=== PATIENT | female | born 2000 | race Caucasian/White ===

== ENCOUNTER 2019-12-15 14:46 | Outpatient (CLI) | payer BC | END 2019-12-15 14:47 | disposition home or self-care (01) | LOC: DTY/OP 14:46 | PROVIDERS: ATTEND Surgery | DX: E66.01 Morbid (severe) obesity due to excess calories (principal) | CPT/HCPCS: 97802 ==

== ENCOUNTER 2020-02-16 15:14 | Outpatient (CLI) | payer BC | END 2020-02-16 15:15 | disposition home or self-care (01) | LOC: DTY/OP 15:14 | PROVIDERS: ATTEND Surgery | DX: E66.01 Morbid (severe) obesity due to excess calories (principal) | CPT/HCPCS: 97802 ==

== ENCOUNTER 2020-03-22 15:03 | Outpatient (CLI) | payer BC | END 2020-03-22 15:04 | disposition home or self-care (01) | LOC: DTY/OP 15:03 | PROVIDERS: ATTEND Surgery | DX: E66.01 Morbid (severe) obesity due to excess calories (principal) | CPT/HCPCS: 97802 ==

== ENCOUNTER 2020-04-21 14:08 | Outpatient (CLI) | payer BC | END 2020-04-21 14:09 | disposition home or self-care (01) | LOC: DTY/OP 14:08 | PROVIDERS: ATTEND Surgery | DX: E66.01 Morbid (severe) obesity due to excess calories (principal) | CPT/HCPCS: 97802 ==

== ENCOUNTER 2020-05-05 06:20 | Outpatient (CLI) | payer BC ==
--- NOTE | 2020-05-05 08:24 | RAD ---
2 views chest: 05/05/2020 COMPARISON: None HISTORY: Preoperative patient FINDINGS: There is no pneumothorax, pleural fluid, focal consolidation, or alveolar edema. IMPRESSION: No acute findings.
[2020-05-05 09:28] LABS: #Eosinphils 0.1 10x3/uL (0.0-0.5); #Monocytes 0.5 10x3/uL (0.0-1.1); %Basophils 0.5 % (0.0-2.0); %Eosinophils 1.6 % (0.0-6.0); %Lymphocytes 44.6 % (18.0-47.0); %Monocytes 6.2 % (0.0-10.0); %Neutrophils 46.9 % (40.0-75.0); Hemoglobin 13.4 g/dL (12.0-16.0); Mean Corpuscular HGB CONC 32.4 G/DL (32.0-36.0); Mean Corpuscular Volume 86.4 fl (80.0-100.0); Mean Platelet Volume 11.5 fl (7.4-10.4); Platelet Count 320 10x3/uL (130-400); RBC Distribution Width 12.4 % (11.5-14.5); Red Blood Cell (RBC) Count 4.78 10x6/uL (3.90-5.20); White Blood Cell (WBC) Count 8.6 10x3/uL (4.5-11.0)
[2020-05-05 09:52] LABS: BHCG - Serum Negative (NEGATIVE); Pregs Control Background? CLEAR/WHITE (CLR/WHITE); Pregs Control Bar Appear? YES (CONTROL BAR)
[2020-05-05 10:12] LABS: ALT (SGPT) 25 U/L (8-55); AST (SGOT) 18 U/L (5-34); Albumin 4.5 g/dL (3.5-5.0); Alkaline Phosphatase 91 U/L (40-110); Anion Gap 15 mmol/L (10-20); BUN (Urea Nitrogen) 17 mg/dL (7.0-18.7); Bilirubin, Total 0.5 mg/dL (0.2-1.2); Calc. Creatinine Clearance 0 mL/min (70-130); Calcium 9.4 mg/dL (7.8-10.44); Carbon Dioxide 24 mmol/L (22-29); Chloride 103 mmol/L (98-107); Globulin 2.4 g/dL (2.4-3.5); Glucose 72 mg/dL (70-105); Potassium 4.1 mmol/L (3.5-5.1); Protein, Total 6.9 g/dL (6.0-8.3); Sodium 138 mmol/L (136-145)
[2020-05-05 12:03] LABS: Hemoglobin A1c 5.2 % (4.0-6.0)
[2020-05-05 19:31] LABS: SARS-CoV-2 MS2 Positive; SARS-CoV-2 N Gene Negative; SARS-CoV-2 S Gene Negative; SARS-CoV-2 by NAA Not Detected (NotDetected); SARS-CoV-2 orf1ab Negative
== END 2020-05-05 06:21 | disposition home or self-care (01) ==
LOC: LABBT 06:20
PROVIDERS: ATTEND Surgery
DX: Z01.818 Encounter for other preprocedural examination (principal); Z01.812 Encounter for preprocedural laboratory examination; Z20.828 Contact with and (suspected) exposure to other viral communicable diseases; E66.01 Morbid (severe) obesity due to excess calories
CPT/HCPCS: 71046; 80053; 83036; 84703; 85025; 87635; 93005; 93010; U0003

== ENCOUNTER 2020-05-05 07:15 | Inpatient (IN) | payer BC ==
[2020-05-06 12:30] VITALS: BMI 39.5
[2020-05-07] MEDS ORDERED: PROPOFOL 200 MG/20 ML VIAL ONE (10:14)
[2020-05-07] MEDS ORDERED: Ketorolac Tromethamine 30 MG/ML VIAL ONE (10:14)
[2020-05-07] MEDS ORDERED: Ondansetron PF 4 MG/2 ML Vial ONE (10:14)
[2020-05-07] MEDS ORDERED: Rocuronium Bromide 10 MG/ML (10ML VIAL) ONE (10:14)
[2020-05-07] MEDS ORDERED: Dexamethasone 20 MG/5 ML VIAL ONE (10:14)
[2020-05-07] MEDS ORDERED: Lidocaine 1% PF 5 ML VIAL ONE (10:14)
[2020-05-07] MEDS ORDERED: Glycopyrrolate 0.2 MG/ML 5 ML SYRINGE ONE (10:14)
[2020-05-07] MEDS ORDERED: Heparin 5,000 UNITS/ML VIAL ONE (11:02)
[2020-05-07] MEDS ORDERED: SUGAMMADEX SODIUM 200 MG/2 ML VIAL ONE (12:40)
[2020-05-07] MEDS ORDERED: Fentanyl 250 MCG/5 ML VIAL ONE (12:40)
[2020-05-07] MEDS ORDERED: Midazolam HCl 2 mg/2 ml Vial ONE (12:42)
[2020-05-07] MEDS ORDERED: Lidocaine 1% w/Epinephrine 1:100K 20 ML VIAL ONE (12:51)
[2020-05-07] MEDS ORDERED: Bupivacaine 0.25% HCL 30 ML VIAL ONE (12:51)
[2020-05-07] MEDS ORDERED: Promethazine HCl 25 MG/ML VIAL IM PRN ×3 (14:32→14:54)
[2020-05-07] MEDS ORDERED: Ondansetron HCl/PF 4 MG/2 ML Vial IVP PRN (14:32)
[2020-05-07] MEDS ORDERED: Promethazine HCl 25 MG/ML VIAL SLOW IVP PRN (14:32)
[2020-05-07] MEDS ORDERED: Meperidine HCl/PF 25 MG/ML VIAL SLOW IVP PRN (14:32)
[2020-05-07] MEDS ORDERED: Dextrose 5% in Water 1,000 ML IV PRN (14:33)
[2020-05-07] MEDS ORDERED: diphenhydrAMINE 50 MG/ML VIAL IVP PRN ×2 (14:33→14:54)
[2020-05-07] MEDS ORDERED: Ondansetron PF 4 MG/2 ML Vial IVP PRN (14:33)
[2020-05-07] MEDS ORDERED: hydrALAZINE 20 MG/ML VIAL SLOW IVP PRN (14:33)
[2020-05-07] MEDS ORDERED: Dextrose 50% Abboject 50 ML SYRINGE SLOW IVP PRN (14:33)
[2020-05-07] MEDS ORDERED: Hydrocodone-Acetamin 15 ML UDCUP PO PRN (14:33)
[2020-05-07] MEDS ORDERED: Fentanyl 100 MCG/2 ML VIAL ONE ×2 (14:38→15:02)
[2020-05-07] MEDS ORDERED: Zolpidem Tartrate 5 MG TAB PO PRN (14:54)
[2020-05-07] MEDS ORDERED: fentaNYL Citrate/PF 2,000 MCG in Sodium Chloride 0.9% 60 ML IV PRN (14:54)
[2020-05-07] MEDS ORDERED: diphenhydrAMINE 50 MG/ML VIAL IM PRN (14:54)
[2020-05-07] MEDS ORDERED: Naloxone HCl 0.4 mg/ml Vial IV PRN (14:54)
[2020-05-07] MEDS ORDERED: diphenhydrAMINE 25 MG CAP PO PRN (14:54)
[2020-05-07] MEDS ORDERED: Communication Order-Pharmacy FS SCH (15:00)
--- NOTE | 2020-05-07 18:26 | OP ---
DATE OF PROCEDURE: 05/07/2020 PREOPERATIVE DIAGNOSIS: Morbid obesity with a body mass index of 40. POSTOPERATIVE DIAGNOSIS: Morbid obesity with a body mass index of 40. PROCEDURE PERFORMED: Laparoscopic sleeve gastrectomy with Ethicon staple line reinforcements and 38-Italian bougie. ANESTHESIA: General. ESTIMATED BLOOD LOSS: 50 mL. COMPLICATIONS: None. FINDINGS: Normal postoperative EGD. DESCRIPTION OF PROCEDURE: The patient was taken to the operating room and laid supine on the operating room table. After general anesthetic was obtained, the arms and legs were double strapped to bariatric table. The abdomen was prepped and draped in a sterile fashion. Left subcostal 5-mm Optiview trocar was placed in usual fashion. High-flow pneumoperitoneum was obtained. A right and left abdominal 12 mm ports as well as a right subcostal 5-mm port were all placed under direct visualization. A 5-mm incision was made at the xiphoid, and the Ayan was brought in and then used to raise the liver off the GE junction. Short gastrics were taken down from a distance of 6 cm proximal to the pylorus angled up towards the incisura. The left johnny, posterior fundus, and angle of His were completely dissected. There was no hiatal hernia. Short gastrics were taken down to a distance of 6 cm proximal to the pylorus. OG tube was removed, and a 38 bougie was brought in and its tip left in the antrum of the stomach. Multiple loads of an [place] staple device were used to perform the sleeve. The first was fired up at the distance of 6 cm proximal to the pylorus, angled up towards the incisura. Care was taken to avoid being too close to the incisura. Multiple loads were then fired up along the bougie. Stomach was completely transected at the angle of His. Stomach was removed from the left abdominal incision. This fascial defect was closed using GraNee needle and Vicryl tie. There was no bleeding on the staple line. The bougie was removed, and an EGD scope was passed through the esophagus, stomach to the level of duodenum without obstruction. There was no stricture at the incisura. No involvement of the GE junction with the staple line. EGD scope was used to decompress the stomach, it was pulled and removed. All port sites were infiltrated using local anesthetic. Ayan retractors were removed under direct visualization as are all ports. Vicryl in a GraNee needle had been used to close the fascial defect from the left abdominal incision. All ports were removed under camera visualization without bleeding. Pneumoperitoneum was let down. 4-0 Monocryl and Dermabond to close all skin incisions. The patient was sent to Recovery in stable condition. All instrument counts, needle counts, and lap counts were correct. Job ID: [id number]
[2020-05-07] MEDS: D5 1/2 NS w/20 mEq KCL 1,000 ML IV SCH ×2 (20:26→23:30)
[2020-05-07] MEDS: Ondansetron PF 4 MG/2 ML Vial IVP PRN (20:31)
[2020-05-07] MEDS ORDERED: Enoxaparin Sodium 40 MG/0.4 ML SYRINGE SC SCH (21:00)
[2020-05-08] MEDS: Ondansetron PF 4 MG/2 ML Vial IVP PRN ×2 (05:20→11:23)
[2020-05-08] MEDS: D5 1/2 NS w/20 mEq KCL 1,000 ML IV SCH (05:20)
[2020-05-08 05:25] LABS: #Lymphocytes 1.8 thou/uL (1.20-3.40); #Monocytes 0.9 thou/uL (0.11-0.59); #Neutrophils 7.8 thou/uL (1.40-6.50); %Basophils 0.1 % (0.0-1.0); %Eosinophils 0.1 % (0.0-10.0); %Lymphocytes 17.2 % (21.0-51.0); %Monocytes 8.9 % (0.0-10.0); %Neutrophils 73.8 % (42.0-75.0); Hemoglobin 12.8 g/dL (12.0-16.0); Mean Corpuscular Hemoglobin 28.2 pg (27.0-31.0); Mean Platelet Volume 8.6 fL (7.4-10.4); Platelet Count 270 thou/uL (130-400); RBC Distribution Width 11.6 % (11.5-14.5); Red Blood Cell (RBC) Count 4.52 mill/uL (4.20-5.40); White Blood Cell (WBC) Count 10.6 thou/uL (4.8-10.8)
[2020-05-08 05:54] LABS: Anion Gap 13 mmol/L (10-20); BUN (Urea Nitrogen) 6 mg/dL (7.0-18.7); Calc. Creatinine Clearance 221 mL/min (70-130); Calcium 8.5 mg/dL (7.8-10.44); Carbon Dioxide 23 mmol/L (22-29); Chloride 104 mmol/L (98-107); Glucose 108 mg/dL (70-105); Potassium 4.4 mmol/L (3.5-5.1); Sodium 136 mmol/L (136-145)
--- NOTE | 2020-05-08 08:24 | DIS ---
DATE OF ADMISSION: 05/07/2020 DATE OF DISCHARGE: 05/08/2020 ADMITTING DIAGNOSIS: Morbid obesity. DISCHARGE DIAGNOSIS: Morbid obesity. PROCEDURE: Laparoscopic sleeve by Dr. Green without complication. CONDITION ON DISCHARGE: Improved. STAFF: Yariel Green MD HOSPITAL COURSE: On postop day 1, the patient is tolerating liquids. She is doing well. She is discharged home. She will follow up in 2 weeks. Job ID: [id number]
[2020-05-08] MEDS ORDERED: Pantoprazole 40 MG VIAL IVP SCH (09:00)
[2020-05-08] MEDS ORDERED: Hydrocodone-Acetamin 15 ML UDCUP PO PRN (09:22)
[2020-05-08 11:26] VITALS: BP 117/62; TEMP 98.1
[2020-05-08] MEDS ORDERED: FLU VACC QS2020-21(6MOS UP)/PF 60 MCG/0.5 ML SYRINGE IM ONE (21:00)
== END 2020-05-08 12:44 | disposition home or self-care (01) | DRG 621 ==
LOC: SURG A 05-07 10:41 → SJJU 05-07 19:08
PROVIDERS: ADMIT Surgery; ATTEND Surgery
PROC: 0DB64Z3 Excision of Stomach, Percutaneous Endoscopic Approach, Vertical (ICD-10-PCS; principal; 2020-05-07)
PROC: 0DJ08ZZ Inspection of Upper Intestinal Tract, Via Natural or Artificial Opening Endoscopic (ICD-10-PCS; 2020-05-07)
DX: E66.01 Morbid (severe) obesity due to excess calories (principal); Z79.899 Other long term (current) drug therapy; Z68.41 Body mass index [BMI] 40.0-44.9, adult; Z23 Encounter for immunization; Z20.828 Contact with and (suspected) exposure to other viral communicable diseases
CPT/HCPCS: 36415; 71046; 80048; 80053; 83036; 84703; 85025; 87635; 88307; 88312; 93005; C9113; J0690; J1100; J1644; J1650; J1885; J2250; J2405; J2704; J3010; J3480; S0020; U0003

== ENCOUNTER 2020-05-12 00:10 | Emergency (ER) | payer BC ==
[2020-05-12 01:05] LABS: #Basophils 0.1 thou/uL (0.0-0.2); #Eosinphils 0.2 thou/uL (0.0-0.7); #Lymphocytes 2.9 thou/uL (1.20-3.40); #Monocytes 0.6 thou/uL (0.11-0.59); #Neutrophils 6.1 thou/uL (1.40-6.50); %Basophils 0.5 % (0.0-1.0); %Eosinophils 1.6 % (0.0-10.0); %Lymphocytes 29.5 % (21.0-51.0); %Monocytes 6.5 % (0.0-10.0); %Neutrophils 61.9 % (42.0-75.0); Hemoglobin 13.2 g/dL (12.0-16.0); Mean Corpuscular HGB CONC 33.7 g/dL (32.0-36.0); Mean Corpuscular Volume 86.1 fL (78.0-98.0); Mean Platelet Volume 8.5 fL (7.4-10.4); Platelet Count 278 thou/uL (130-400); RBC Distribution Width 11.6 % (11.5-14.5); Red Blood Cell (RBC) Count 4.54 mill/uL (4.20-5.40); White Blood Cell (WBC) Count 9.8 thou/uL (4.8-10.8)
[2020-05-12 01:22] LABS: BHCG - Serum Negative (NEGATIVE); Pregs Control Background? CLEAR/WHITE (CLR/WHITE); Pregs Control Bar Appear? YES (CONTROL BAR)
[2020-05-12 01:27] LABS: ALT (SGPT) 20 U/L (8-55); AST (SGOT) 16 U/L (5-34); Albumin 4.2 g/dL (3.5-5.0); Alkaline Phosphatase 89 U/L (40-110); Anion Gap 18 mmol/L (10-20); BUN (Urea Nitrogen) 13 mg/dL (7.0-18.7); Bilirubin, Total 0.7 mg/dL (0.2-1.2); Calc. Creatinine Clearance 0 mL/min (70-130); Calcium 9.1 mg/dL (7.8-10.44); Carbon Dioxide 20 mmol/L (22-29); Chloride 101 mmol/L (98-107); Globulin 3.2 g/dL (2.4-3.5); Glucose 75 mg/dL (70-105); Potassium 3.7 mmol/L (3.5-5.1); Protein, Total 7.4 g/dL (6.0-8.3); Sodium 135 mmol/L (136-145)
--- NOTE | 2020-05-12 08:11 | CT ---
PRELIMINARY REPORT/[facility]/EMERGENCY AFTER HOURS PROCEDURE: EXAM: CTA Chest with Intravenous Contrast CLINICAL HISTORY: HAD SX SUNDAY FOR THE GASTRIC SLEEVE. HAS BEEN HAVING SOB WHEN AMBULATING. DR. SPARKS WAS THE SURGEO N AND TOLD HER TO COME IN TO BE EVALUATED FOR A PE. TECHNIQUE: Axial CTA images of the chest with intravenous contrast. Three-dimensional MIP/volume rendered reform ations were performed. CONTRAST: With; 90ML ISOVUE 370 COMPARISON: None provided. FINDINGS: PULMONARY ARTERIES There is no intraluminal filling defect suspicious for PE. AORTA No thoracic aortic aneurysm or dissection. LUNGS Lungs are clear bilaterally. No evidence of acute pneumonia. PLEURAL SPACES No pleural effusion. No pneumothorax. HEART AND MEDIASTINUM No cardiomegaly. No significant pericardial effusion. LYMPH NODES No lymphadenopathy. BONES No focal osseous abnormality or acute fracture. CHEST WALL AND UPPER ABDOMEN Evidence of recent sleeve gastrectomy with mild stranding in the perigastric fat, an expected recent postoperative finding. No CT evidence of acute complication. IMPRESSION: Unremarkable CTA of the chest. ELECTRONICALLY SIGNED BY: Imer Mann M.D. May 12, 2020 2:26:35 AM [facility] This report is intended for review by the ordering physician only, in accordance of law. If you recei ve this report in error, please call [facility] at [phone]. FINAL REPORT CTA CHEST: Axial tomograms were obtained with multiplanar reconstruction and 3D post processing. HISTORY: Postop with shortness of breath. Assess for pulmonary embolus. FINDINGS: No evidence of pulmonary embolus. Lung griffin appear clear. No mediastinal adenopathy. I am in agreement with the preliminary report. POS: REI
[2020-05-12] MEDS ORDERED: Iopamidol 370 76% 100 ML VIAL ONE (09:07)
--- NOTE | 2020-05-15 13:29 | EKG ---
Test Reason : Blood Pressure : / mmHG Vent. Rate : 064 BPM Atrial Rate : 064 BPM P-R Int : 144 ms QRS Dur : 082 ms QT Int : 392 ms P-R-T Axes : 046 042 025 degrees QTc Int : 404 ms Normal sinus rhythm Normal ECG Confirmed by DAMON JENKINS M.D. ([id number]), video editor GERMAN SAUNDERS ([id number]) on 05/15/2020 1:29:38 PM Referred By: Confirmed By:DAMON JENKINS M.D.
== END 2020-05-12 02:45 | disposition home or self-care (01) ==
LOC: ERS 00:10
DX: R06.00 Dyspnea, unspecified (principal)
CPT/HCPCS: 71275; 80053; 84703; 85025; 93005; Q9967

== ENCOUNTER 2020-11-03 14:07 | Emergency (ER) | payer BC ==
[2020-11-03] MEDS ORDERED: Ondansetron PF 4 MG/2 ML Vial ONE (14:47)
[2020-11-03 14:50] LABS: #Eosinphils 0.1 thou/uL (0.0-0.7); #Lymphocytes 1.7 thou/uL (1.20-3.40); #Monocytes 0.7 thou/uL (0.11-0.59); #Neutrophils 7.8 thou/uL (1.40-6.50); %Basophils 0.1 % (0.0-1.0); %Eosinophils 0.9 % (0.0-10.0); %Lymphocytes 16.9 % (21.0-51.0); %Monocytes 6.5 % (0.0-10.0); %Neutrophils 75.6 % (42.0-75.0); Hemoglobin 14.4 g/dL (12.0-16.0); Mean Corpuscular HGB CONC 33.2 g/dL (32.0-36.0); Mean Corpuscular Hemoglobin 30.9 pg (27.0-31.0); Mean Corpuscular Volume 93.1 fL (78.0-98.0); Mean Platelet Volume 8.8 fL (7.4-10.4); Platelet Count 261 thou/uL (130-400); RBC Distribution Width 12.1 % (11.5-14.5); Red Blood Cell (RBC) Count 4.67 mill/uL (4.20-5.40); White Blood Cell (WBC) Count 10.3 thou/uL (4.8-10.8)
[2020-11-03 15:12] LABS: Bilirubin Small (Negative); Blood, Urine Negative (Negative); Glucose, Urine (Dipstick) Negative (Negative); Ketone, Urine 15 mg/dL (Negative); Leukocyte Negative (Negative); Nitrite Negative (Negative); Protein, Urine (Dipstick) Negative (Neg-Trace); Specific Gravity, Urine 1.025 (1.005-1.030); pH, Urine 6.5 (5.0-9.0)
[2020-11-03 15:15] LABS: ALT (SGPT) 23 U/L (8-55); AST (SGOT) 24 U/L (5-34); Albumin 4.1 g/dL (3.5-5.0); Alkaline Phosphatase 85 U/L (40-110); Anion Gap 13 mmol/L (10-20); BUN (Urea Nitrogen) 8 mg/dL (7.0-18.7); Bilirubin, Total 0.8 mg/dL (0.2-1.2); Calc. Creatinine Clearance 0 mL/min (70-130); Calcium 9.3 mg/dL (7.8-10.44); Carbon Dioxide 26 mmol/L (22-29); Chloride 104 mmol/L (98-107); Globulin 2.6 g/dL (2.4-3.5); Glucose 107 mg/dL (70-105); Lipase 297 U/L (8-78); Potassium 4.2 mmol/L (3.5-5.1); Protein, Total 6.7 g/dL (6.0-8.3); Sodium 139 mmol/L (136-145)
[2020-11-03 15:21] LABS: Clarity Clear (Clear)
[2020-11-03 15:22] LABS: Pregnancy Test - Urine (BHCG) Negative (Negative); Pregu Control Background? CLEAR/WHITE (CLR/WHITE); Pregu Control Bar Appear? YES (CONTROL BAR); RBC/HPF 0-3 HPF (0-3); Specific Gravity 1.025 (1.002-1.036)
[2020-11-03 15:23] LABS: Bacteria/HPF 1+ HPF (None Seen)
== END 2020-11-03 16:53 | disposition home or self-care (01) ==
LOC: ERS 14:07
DX: K80.20 Calculus of gallbladder without cholecystitis without obstruction (principal); Z79.899 Other long term (current) drug therapy
CPT/HCPCS: 76705; 80053; 81003; 81025; 83690; 85025; 93005; 96374; J2405

== ENCOUNTER 2020-11-11 11:15 | Outpatient (CLI) | payer BC ==
[2020-11-11 13:10] LABS: #Eosinphils 0.1 10x3/uL (0.0-0.5); #Monocytes 0.7 10x3/uL (0.0-1.1); #Neutrophils 4.5 10x3/uL (1.5-8.4); %Basophils 0.4 % (0.0-2.0); %Eosinophils 1.7 % (0.0-6.0); %Lymphocytes 33.8 % (18.0-47.0); %Monocytes 8.2 % (0.0-10.0); %Neutrophils 55.8 % (40.0-75.0); Hemoglobin 13.5 g/dL (12.0-15.5); Mean Corpuscular HGB CONC 32.1 g/dL (32.0-36.0); Mean Corpuscular Hemoglobin 29.3 pg (27.0-33.0); Mean Corpuscular Volume 91.3 fl (81.6-98.3); Mean Platelet Volume 11.9 fl (7.4-10.4); Platelet Count 252 10x3/uL (150-450); RBC Distribution Width 13.1 % (11.5-14.5); Red Blood Cell (RBC) Count 4.61 10x6/uL (3.90-5.03); White Blood Cell (WBC) Count 8.1 10x3/uL (3.5-10.5)
[2020-11-11 13:15] LABS: BHCG - Serum Negative (NEGATIVE); Pregs Control Background? CLEAR/WHITE (CLR/WHITE); Pregs Control Bar Appear? YES (CONTROL BAR)
[2020-11-11 13:24] LABS: ALT (SGPT) 22 U/L (8-55); AST (SGOT) 15 U/L (5-34); Albumin 4.2 g/dL (3.5-5.0); Alkaline Phosphatase 81 U/L (40-110); Anion Gap 13 mmol/L (10-20); BUN (Urea Nitrogen) 8 mg/dL (7.0-18.7); Bilirubin, Direct 0.3 mg/dL (0.1-0.3); Bilirubin, Total 0.7 mg/dL (0.2-1.2); Calc. Creatinine Clearance 0 mL/min (70-130); Calcium 9.9 mg/dL (7.8-10.44); Carbon Dioxide 26 mmol/L (22-29); Chloride 107 mmol/L (98-107); Glucose 74 mg/dL (70-105); Potassium 4.5 mmol/L (3.5-5.1); Protein, Total 6.7 g/dL (6.0-8.3); Sodium 141 mmol/L (136-145)
[2020-11-12 12:13] LABS: SARS-CoV-2 PCR by NAA Not Detected (NotDetected)
== END 2020-11-11 11:16 | disposition home or self-care (01) ==
LOC: LABBT 11:15
PROVIDERS: ATTEND Internal Medicine Rheumatology
DX: Z01.812 Encounter for preprocedural laboratory examination (principal); K80.20 Calculus of gallbladder without cholecystitis without obstruction; Z20.822 Contact with and (suspected) exposure to COVID-19
CPT/HCPCS: 80048; 80076; 84703; 85025; U0003; U0005

== ENCOUNTER 2020-11-16 09:35 | Day surgery (SDC) | payer BC ==
[2020-11-15 10:53] VITALS: BMI 25.8
[2020-11-16] MEDS ORDERED: cefOXitin Sodium/Dextrose 2 GM/50 ML BAG ONE (11:02)
[2020-11-16] MEDS ORDERED: SUGAMMADEX SODIUM 500 MG/5 ML VIAL ONE (12:40)
[2020-11-16] MEDS ORDERED: Fentanyl 100 MCG/2 ML VIAL ONE ×3 (12:40→14:11)
[2020-11-16] MEDS ORDERED: Iothalamate Meglumine 60% 50 ML VIAL FS ONE (12:48)
[2020-11-16] MEDS ORDERED: Bupivacaine 0.25% HCL 30 ML VIAL ONE (12:48)
[2020-11-16] MEDS ORDERED: Lidocaine 1% w/Epinephrine 1:100K 20 ML VIAL ONE (12:48)
[2020-11-16] MEDS ORDERED: Rocuronium Bromide 10 MG/ML (10ML VIAL) ONE (13:08)
[2020-11-16] MEDS ORDERED: PROPOFOL 200 MG/20 ML VIAL ONE (13:08)
[2020-11-16] MEDS ORDERED: Lidocaine 1% PF 5 ML VIAL ONE (13:08)
[2020-11-16] MEDS ORDERED: Ondansetron PF 4 MG/2 ML Vial ONE (13:08)
[2020-11-16] MEDS ORDERED: Dexamethasone 20 MG/5 ML VIAL ONE (13:08)
[2020-11-16] MEDS ORDERED: Ketorolac Tromethamine 30 MG/ML VIAL ONE (13:08)
[2020-11-16] MEDS ORDERED: Meperidine HCl/PF 25 MG/ML VIAL ONE (14:09)
[2020-11-16] MEDS ORDERED: HYDROcodone/Acetaminophen 5/325 mg Tablet ONE (15:50)
== END 2020-11-16 17:27 | disposition home or self-care (01) ==
LOC: SDC 09:35
PROVIDERS: ATTEND Surgery
PROC: 0FT44ZZ Resection of Gallbladder, Percutaneous Endoscopic Approach (ICD-10-PCS; principal; 2020-11-16)
PROC: BF121ZZ Fluoroscopy of Gallbladder using Low Osmolar Contrast (ICD-10-PCS; principal; 2020-11-16)
DX: K80.10 Calculus of gallbladder with chronic cholecystitis without obstruction (principal); Z79.899 Other long term (current) drug therapy
CPT/HCPCS: 47532; 88304; J0694; J1100; J1885; J2175; J2405; J2704; J3010; Q9961; S0020